=== PATIENT | female | born 1975 | race Caucasian/White ===

== ENCOUNTER 2017-04-20 11:02 | Emergency (ER) | payer OTHER ==
[~2017-04-20] VITALS: Ht 175.3 cm; Wt 129.3 kg
--- OUTSIDE RECORDS SUMMARY | 2017-04-20 11:11 | External Medical Summary Rpt | CCD ---
Demographics Preferred Language Croatian Marital Status Unknown Yazidism Affiliation Unknown Race Unknown Ethnic Group Unknown Author Author , FRANCISCO SINGH Address Unknown Phone Immunization No patient found.
--- OUTSIDE RECORDS SUMMARY | 2017-04-20 11:11 | External Medical Summary Rpt | CCD ---
Author Author [facility] Organization [facility] Address Unknown Phone Unavailable Purpose Continuity of Care Document - through 2016
--- OUTSIDE RECORDS SUMMARY | 2017-04-20 11:11 | External Medical Summary Rpt | CCD ---
Demographics Preferred Language Arabic Marital Status Unknown Church Affiliation Unknown Race Unknown Ethnic Group Unknown Author Author , FRANCISCO SINGH Address Unknown Phone Immunization No patient found.
--- OUTSIDE RECORDS SUMMARY | 2017-04-20 11:11 | External Medical Summary Rpt | CCD ---
Author Author , FRANCISCO SINGH Address Unknown Phone [email or web address] Purpose Continuity of Care Document - through 2016
--- OUTSIDE RECORDS SUMMARY | 2017-04-20 11:11 | External Medical Summary Rpt | CCD ---
Author Author , FRANCISCO SINGH Address Unknown Phone [email or web address] Purpose Continuity of Care Document - through 2016
[2017-04-20] MEDS ORDERED: CELEXA40 MG PO ×2 (11:16→12:13)
[2017-04-20] MEDS ORDERED: CETIRIZINE HCL10 MG PO ×2 (11:17→12:13)
[2017-04-20] MEDS ORDERED: NEXIUM40 MG PO ×2 (11:17→12:13)
[2017-04-20] MEDS ORDERED: TOLTERODINE TART4 MG PO (11:18)
[2017-04-20] MEDS ORDERED: PROVENTIL0.09 MG/A1 IH ×2 (11:19→12:13)
[2017-04-20] MEDS ORDERED: DULERA1 AR1 IH ×2 (11:19→12:13)
[2017-04-20] MEDS ORDERED: DETROL LA4 MG PO (12:13)
[2017-04-20 12:15] VITALS: BP 120/76
--- NOTE | 2017-04-20 12:15 | Urgent Treatment Center Report ---
History of Present Issue Date/Time Seen by Provider 04/20/17 1138 Visit Reason Pt arrived:Walked Presenting Problem:MEDICATION REFILLS Location if Accident: Onset of symptoms date/time:/ or onset unknown for:MEDICAL HX UNKNOWN Have you (or family members/close friends) recently traveled outside the [place]? N If Yes, where/when: Have you had exposure to infectious disease within the past month? TB? Other? Specify: Here requesting med refills, moved from [place] to [place], [place]. Working on having medicaid changed to [place] so she can find a new PCP. Has been in contact w/ Nydia [facility] finanacial counselor. Currently Out of albuterol inhaler but has nebs and out of nexium but running low on several other medications. Denies any new symptoms due to being without medications. No problems at this time. "I just need a few weeks to by me time to find a new provider". Source patient Exam Limitations no limitations ALLERGIES Coded Allergies: No Known Allergies (04/20/17) Home Medications Reported Medications CITALOPRAM HYDROBROMIDE (Citalopram HBr) 40 MG PO DAILY Esomeprazole Magnesium (Nexium 40MG Cap) 40 MG PO DAILY CETIRIZINE HCL (Cetirizine 10MG) 10 MG PO DAILY Tolterodine Tartrate (Tolterodine Tartrate ER) 4 MG PO DAILY ALBUTEROL (Proventil Hfa Inhaler) 1-2 PUFF IH Q4-6H PRN MOMETASONE/FORMOTEROL (Dulera 200 Mcg/5 Mcg Inhaler) 2 PUFFS IH BID History Medical History General CAD? No [place]: No Hypertension? No Hyperlipidemia? No CHF? No DVT? No PE? No COPD? No Asthma? Yes Anemia? No GERD? No Gastric ulcers? Yes GI Bleed? No Hernia? No Thyroid Problems? No Hypothyroidism? No CVA? No Seizures? No Diabetes? No Renal Insuffiency? No UTI? No Stones? No BPH? No GB Disease: No Nephritic Syndrome? No Asplenia? No Hepatitis? No Sickle Cell Disease? No Arthritis? No Migraines? No Cataracts? No Glaucoma? No MRSA? No HIV? No TB? No Anxiety? No Depression? Yes Cancer? No Site: N More? No Immunization HX DT/Tetanus Unknown Surgical Hx Previous Surgery?Y T&a ANKLE ELBOW BLADDER REPAIR GALLBLADDER KNEE Social History Smoking Hx Smoker: Current Every Day Smoker Tobacco: Yes Type Cigarettes Alcohol Alcohol: No Review of Systems All Other Systems Reviewed and Negative Constitutional denies malaise, denies other (fatigue) Eyes denies vision change ENT denies: ear pain, nose discharge, nose congestion, throat pain. Respiratory denies cough, denies shortness of breath, denies wheezing Cardiovascular denies chest pain, denies palpitations Gastrointestinal denies abdominal pain, denies diarrhea, denies vomiting Genitourinary denies: dysuria, frequency. Musculoskeletal denies joint pain Skin denies rash Psychiatric/Neurological denies headache, denies other (dizziness) Physical Exam Vital Signs Vital Signs Date Time Temp Pulse Resp B/P Pulse O2 O2 Flow FiO2 Ox Delivery Rate 04/20 1215 98.2 84 18 120/76 96 04/20 1123 98.2 79 18 120/76 96 General Appearance normal appearance, no apparent distress Ear, Nose, Throat normal ENT inspection Respiratory Status No: respiratory distress. Lung Sounds anterior: lungs clear. posterior: lungs clear. bilateral: lungs clear. Cardiovascular regular rate/rhythm, no peripheral edema, no murmur Gastrointestinal normal bowel sounds, non tender, soft Neurologic alert, oriented x 3 Skin normal color, warm/dry Medical Decision Making LABS/Meds/Orders Pt receiving controlled substance in ED? No Departure Departure Time of Disposition 1205 Disposition DC Home or Self Care(routine) Clinical Impression Primary Impression: Medication refill Condition STABLE Referrals NO REFERRAL Welcome to the area. We have provided you with a list of providers accepting patients. I would encourage you find him a new primary care provider and make an appt MIGUELITO as it can take weeks to get a new patient appointment. In the meantime , follow up in the clinic or ER for new, worsening or persistent symptoms. Additional Instructions you refills were sent. You have one month of courtesy medication to find a primary care provider FU immediately for any new symptoms in the meantime. Discharge Counseling Counseled pt/family regarding diagnosis, medications/RX, home care, follow up needs Prescriptions Current Visit Scripts CITALOPRAM HYDROBROMIDE (Citalopram HBr) 40 MG PO DAILY #30 TAB Esomeprazole Magnesium (Nexium 40MG Cap) 40 MG PO DAILY #30 CAP CETIRIZINE HCL (Cetirizine 10MG) 10 MG PO DAILY #30 TAB Tolterodine Tartrate (Detrol La) 4 MG PO DAILY #30 CER ALBUTEROL (Proventil Hfa Inhaler) 1-2 PUFF IH Q4-6H PRN PRN SOA, wheezing #1 CAN MOMETASONE/FORMOTEROL (Dulera 200 Mcg/5 Mcg Inhaler) 2 PUFFS IH BID #1 INH at 0816
--- NOTE | 2017-04-20 12:15 | Urgent Treatment Center Report ---
History of Present Issue Date/Time Seen by Provider 04/20/17 1138 Visit Reason Pt arrived:Walked Presenting Problem:MEDICATION REFILLS Location if Accident: Onset of symptoms date/time:/ or onset unknown for:MEDICAL HX UNKNOWN Have you (or family members/close friends) recently traveled outside the [place]? N If Yes, where/when: Have you had exposure to infectious disease within the past month? TB? Other? Specify: Here requesting med refills, moved from [place] to [place], [place]. Working on having medicaid changed to [place] so she can find a new PCP. Has been in contact w/ Nydia [facility] finanacial counselor. Currently Out of albuterol inhaler but has nebs and out of nexium but running low on several other medications. Denies any new symptoms due to being without medications. No problems at this time. "I just need a few weeks to by me time to find a new provider". Source patient Exam Limitations no limitations ALLERGIES Coded Allergies: No Known Allergies (04/20/17) Home Medications Reported Medications CITALOPRAM HYDROBROMIDE (Citalopram HBr) 40 MG PO DAILY Esomeprazole Magnesium (Nexium 40MG Cap) 40 MG PO DAILY CETIRIZINE HCL (Cetirizine 10MG) 10 MG PO DAILY Tolterodine Tartrate (Tolterodine Tartrate ER) 4 MG PO DAILY ALBUTEROL (Proventil Hfa Inhaler) 1-2 PUFF IH Q4-6H PRN MOMETASONE/FORMOTEROL (Dulera 200 Mcg/5 Mcg Inhaler) 2 PUFFS IH BID History Medical History General CAD? No [place]: No Hypertension? No Hyperlipidemia? No CHF? No DVT? No PE? No COPD? No Asthma? Yes Anemia? No GERD? No Gastric ulcers? Yes GI Bleed? No Hernia? No Thyroid Problems? No Hypothyroidism? No CVA? No Seizures? No Diabetes? No Renal Insuffiency? No UTI? No Stones? No BPH? No GB Disease: No Nephritic Syndrome? No Asplenia? No Hepatitis? No Sickle Cell Disease? No Arthritis? No Migraines? No Cataracts? No Glaucoma? No MRSA? No HIV? No TB? No Anxiety? No Depression? Yes Cancer? No Site: N More? No Immunization HX DT/Tetanus Unknown Surgical Hx Previous Surgery?Y T&a ANKLE ELBOW BLADDER REPAIR GALLBLADDER KNEE Social History Smoking Hx Smoker: Current Every Day Smoker Tobacco: Yes Type Cigarettes Alcohol Alcohol: No Review of Systems All Other Systems Reviewed and Negative Constitutional denies malaise, denies other (fatigue) Eyes denies vision change ENT denies: ear pain, nose discharge, nose congestion, throat pain. Respiratory denies cough, denies shortness of breath, denies wheezing Cardiovascular denies chest pain, denies palpitations Gastrointestinal denies abdominal pain, denies diarrhea, denies vomiting Genitourinary denies: dysuria, frequency. Musculoskeletal denies joint pain Skin denies rash Psychiatric/Neurological denies headache, denies other (dizziness) Physical Exam Vital Signs Vital Signs Date Time Temp Pulse Resp B/P Pulse O2 O2 Flow FiO2 Ox Delivery Rate 04/20 1215 98.2 84 18 120/76 96 04/20 1123 98.2 79 18 120/76 96 General Appearance normal appearance, no apparent distress Ear, Nose, Throat normal ENT inspection Respiratory Status No: respiratory distress. Lung Sounds anterior: lungs clear. posterior: lungs clear. bilateral: lungs clear. Cardiovascular regular rate/rhythm, no peripheral edema, no murmur Gastrointestinal normal bowel sounds, non tender, soft Neurologic alert, oriented x 3 Skin normal color, warm/dry Medical Decision Making LABS/Meds/Orders Pt receiving controlled substance in ED? No Departure Departure Time of Disposition 1205 Disposition DC Home or Self Care(routine) Clinical Impression Primary Impression: Medication refill Condition STABLE Referrals NO REFERRAL Welcome to the area. We have provided you with a list of providers accepting patients. I would encourage you find him a new primary care provider and make an appt MIGUELITO as it can take weeks to get a new patient appointment. In the meantime , follow up in the clinic or ER for new, worsening or persistent symptoms. Additional Instructions you refills were sent. You have one month of courtesy medication to find a primary care provider FU immediately for any new symptoms in the meantime. Discharge Counseling Counseled pt/family regarding diagnosis, medications/RX, home care, follow up needs Prescriptions Current Visit Scripts CITALOPRAM HYDROBROMIDE (Citalopram HBr) 40 MG PO DAILY #30 TAB Esomeprazole Magnesium (Nexium 40MG Cap) 40 MG PO DAILY #30 CAP CETIRIZINE HCL (Cetirizine 10MG) 10 MG PO DAILY #30 TAB Tolterodine Tartrate (Detrol La) 4 MG PO DAILY #30 CER ALBUTEROL (Proventil Hfa Inhaler) 1-2 PUFF IH Q4-6H PRN PRN SOA, wheezing #1 CAN MOMETASONE/FORMOTEROL (Dulera 200 Mcg/5 Mcg Inhaler) 2 PUFFS IH BID #1 INH at 0816
== END 2017-04-20 12:10 | disposition home or self-care (01) ==
LOC: UTC 11:02
DX: Z76.0 Encounter for issue of repeat prescription (principal)